=== PATIENT | female | born 1945 | race Asian ===

== ENCOUNTER 2023-10-01 10:56 | Inpatient (IN) | payer OTHER ==
[~2023-10-01] VITALS: Ht 152.6 cm; Wt 52.2 kg
[2023-10-01 11:19] VITALS: BP_SYST 149; PULSE 66; RESP 18; TEMP 97.1; O2SAT 100
[2023-10-01 11:47] LABS: BASOPHILS # (AUTO) 0.1 K/uL (0.0-0.2); BASOPHILS % (AUTO) 0.7 % (0.0-2.0); EOSINOPHILS # (AUTO) 0.1 K/uL (0.0-0.4); EOSINOPHILS % (AUTO) 1.3 % (0.0-4.0); HEMATOCRIT 35.2 % (36-48); HEMOGLOBIN 11.8 g/dL (12.0-16.0); LYMPHOCYTES # (AUTO) 3.3 K/uL (1.0-5.5); LYMPHOCYTES % (AUTO) 33.3 % (20.5-51.5); MEAN CORPUSCULAR HEMOGLOBIN 30 pg (27-31); MEAN CORPUSCULAR HGB CONC 34 % (32-36); MEAN CORPUSCULAR VOLUME 90 fL (79.0-98.0); MONOCYTES # (AUTO) 0.7 K/uL (0.0-1.0); MONOCYTES % (AUTO) 7.1 % (1.7-9.3); NEUTROPHILS # (AUTO) 5.7 K/uL (1.8-7.7); NEUTROPHILS % (AUTO) 57.6 % (40.0-70.0); PLATELET COUNT (AUTO) 288 K/uL (130-430); RED BLOOD CELL COUNT(AUTO) 3.91 MIL/uL (4.2-6.2); RED CELL DISTRIBUTION WIDTH 14.6 % (9.0-15.0); WHITE BLOOD COUNT (AUTO) 9.9 K/uL (4.8-10.8)
[2023-10-01 12:00] LABS: ANION GAP 6 (5-15); CALCIUM 9.7 mg/dL (8.4-11.0); CARBON DIOXIDE 30 mmol/L (23-29); CHLORIDE 104 mmol/L (98-107); CREATININE 1.08 mg/dL (0.55-1.30); GLUCOSE 86 mg/dL (74-106); POTASSIUM 3.7 mmol/L (3.5-5.1); SODIUM SERUM 140 mmol/L (136-145); UREA NITROGEN, BLOOD 20 mg/dL (8-21)
[2023-10-01 12:04] LABS: PROTHROMBIN TIME 10.1 SECS (9.5-12.5)
[2023-10-01 12:48] LABS: LIPASE 79 U/L (16-77)
[2023-10-01] MEDS: PANTOPRAZOLE SODIUM 40 MG/VIAL (PROTONIX) IVP ONE (13:26)
[2023-10-01] MEDS: NACL 0.9% 1,000 ML IV ONE (15:15)
[2023-10-01] MEDS ORDERED: AMLO5TAB92 PO (15:24)
[2023-10-01] MEDS ORDERED: METF-1069 PO (15:24)
[2023-10-01] MEDS ORDERED: LOSA50TA28 PO (15:24)
[2023-10-01] MEDS ORDERED: LEVO75CA5 (15:24)
[2023-10-01] MEDS: D5/0.45 NS 1,000 ML IV SCH (17:00)
[2023-10-01] MEDS: metroNIDAZOLE 500 mg/NS 100 ML IV ONE (17:40)
[2023-10-01] MEDS: LEVOFLOXACIN 250 MG/D5W 50 ML IV SCH (19:52)
[2023-10-01] MEDS: SULFAMETHOXAZOLE /TRIMETHOPRIM 20 ML in D5W 500 ML IV ONE (20:59)
[2023-10-01 23:54] VITALS: BP_SYST 140; PULSE 72; RESP 16; TEMP 96.9; O2SAT 98
[2023-10-02 00:48] VITALS: BP_SYST 143; PULSE 79; RESP 18; TEMP 97.2; O2SAT 98
[2023-10-02] MEDS: metroNIDAZOLE 500 mg/NS 100 ML IV SCH (01:46)
[2023-10-02] MEDS: metroNIDAZOLE 500 mg/NS 100 ML IV ONE (01:55)
[2023-10-02 08:00] VITALS: BP_SYST 142; PULSE 74; RESP 20; TEMP 97.7; O2SAT 99
[2023-10-02 16:00] VITALS: BP_SYST 146; PULSE 75; RESP 19; TEMP 97.3; O2SAT 97
[2023-10-02 20:30] VITALS: BP_SYST 137; PULSE 78; RESP 20; TEMP 98.5; O2SAT 95
[2023-10-02 22:00] VITALS: O2SAT 98
[2023-10-02] MEDS: metFORMIN HCL 500 MG TABLET PO SCH (22:03)
[2023-10-03 01:00] VITALS: BP_SYST 141; PULSE 84; RESP 18; TEMP 97.6; O2SAT 97
[2023-10-03] MEDS: LEVOTHYROXINE SODIUM 0.075 MG TABLET PO SCH (06:33)
[2023-10-03 08:00] VITALS: O2SAT 98
[2023-10-03] MEDS: LOSARTAN POTASSIUM 50 MG TABLET (COZAAR) PO SCH (08:45)
[2023-10-03 13:24] LABS: ANION GAP 8 (5-15); CALCIUM 8.7 mg/dL (8.4-11.0); CARBON DIOXIDE 28 mmol/L (23-29); CHLORIDE 109 mmol/L (98-107); CREATININE 0.98 mg/dL (0.55-1.30); GLUCOSE 106 mg/dL (74-106); POTASSIUM 3.7 mmol/L (3.5-5.1); SODIUM SERUM 145 mmol/L (136-145); UREA NITROGEN, BLOOD 10 mg/dL (8-21)
[2023-10-03 16:32] VITALS: BP_SYST 152; PULSE 60; RESP 18; TEMP 98.1; O2SAT 97
[2023-10-03 20:30] VITALS: BP_SYST 137; PULSE 68; RESP 20; TEMP 97.5; O2SAT 96
[2023-10-03 22:00] VITALS: O2SAT 95
[2023-10-04 01:00] VITALS: BP_SYST 132; PULSE 74; RESP 20; TEMP 98.2; O2SAT 96
[2023-10-04 05:35] LABS: BASOPHILS % (AUTO) 0.3 % (0.0-2.0); EOSINOPHILS # (AUTO) 0.3 K/uL (0.0-0.4); EOSINOPHILS % (AUTO) 3.2 % (0.0-4.0); HEMATOCRIT 31.9 % (36-48); HEMOGLOBIN 10.7 g/dL (12.0-16.0); LYMPHOCYTES # (AUTO) 2.6 K/uL (1.0-5.5); LYMPHOCYTES % (AUTO) 32.1 % (20.5-51.5); MEAN CORPUSCULAR HEMOGLOBIN 30 pg (27-31); MEAN CORPUSCULAR HGB CONC 34 % (32-36); MEAN CORPUSCULAR VOLUME 90 fL (79.0-98.0); MONOCYTES # (AUTO) 0.6 K/uL (0.0-1.0); NEUTROPHILS # (AUTO) 4.5 K/uL (1.8-7.7); NEUTROPHILS % (AUTO) 56.4 % (40.0-70.0); PLATELET COUNT (AUTO) 254 K/uL (130-430); RED BLOOD CELL COUNT(AUTO) 3.55 MIL/uL (4.2-6.2); RED CELL DISTRIBUTION WIDTH 14.2 % (9.0-15.0)
[2023-10-04 05:49] LABS: ANION GAP 6 (5-15); CALCIUM 8.7 mg/dL (8.4-11.0); CARBON DIOXIDE 27 mmol/L (23-29); CHLORIDE 108 mmol/L (98-107); CREATININE 0.93 mg/dL (0.55-1.30); GLUCOSE 81 mg/dL (74-106); POTASSIUM 3.7 mmol/L (3.5-5.1); SODIUM SERUM 141 mmol/L (136-145); UREA NITROGEN, BLOOD 13 mg/dL (8-21)
[2023-10-04 08:32] VITALS: O2SAT 98
[2023-10-04 08:38] VITALS: BP_SYST 146; PULSE 62; RESP 16; TEMP 97.7; O2SAT 98
[2023-10-04] MEDS ORDERED: iohexoL 350 mgI/mL, 100 ML INFUS..BTL IV ONE (09:03)
[2023-10-04] MEDS: NACL 0.9% 1,000 ML IV SCH (10:45)
[2023-10-04 12:00] VITALS: BP_SYST 148; PULSE 72; RESP 16; TEMP 98.3; O2SAT 99
[2023-10-04 16:00] VITALS: BP_SYST 145; PULSE 68; RESP 17; TEMP 98.2; O2SAT 91
[2023-10-04] MEDS ORDERED: METR-154 PO (16:06)
[2023-10-04] MEDS ORDERED: LEVO250T73 PO (16:06)
[2023-10-04 16:41] VITALS: BP_SYST 145; PULSE 68; RESP 17; TEMP 98.2; O2SAT 98
== END 2023-10-04 17:22 | disposition home or self-care (01) | DRG 394 ==
LOC: SED 10:56 → SMU 16:11
PROVIDERS: ADMIT Specialist; ATTEND Specialist
DX: K55.039 Acute (reversible) ischemia of large intestine, extent unspecified (principal); E87.20 Acidosis, unspecified; E11.9 Type 2 diabetes mellitus without complications; I10 Essential (primary) hypertension; Z88.1 Allergy status to other antibiotic agents; Z91.040 Latex allergy status; Z79.84 Long term (current) use of oral hypoglycemic drugs
CPT/HCPCS: 36415; 72191; 74175; 80048; 82948; 83605; 83690; 84484; 85025; 85610; 85730; 86886; 86900; 86901; 87040; 93005; 96361; 96365; 96375; 99285; C9113; J1956; J3490; Q9967